=== PATIENT | male | born 1985 | race Caucasian/White ===

== ENCOUNTER 2019-09-13 10:22 | Outpatient (CLI) | payer MEDICARE, MEDICAID, SELFPAY ==
--- NOTE | ~2019-09-13 | XR_ITS ---
EXAMINATION: XR chest 2V DATE: 09/13/2019 10:40 INDICATION: Other specified symptoms and signs involving the circulatory system. TECHNIQUE: Frontal and lateral views of the chest were obtained. COMPARISON: Chest 2 views 08/02/2018 FINDINGS: Calcified bilateral lung nodules and calcified left hilar lymph nodes are consistent with o ld granulomatous disease. No pleural effusion or pneumothorax. The heart size is normal. IMPRESSION: 1. No acute cardiopulmonary disease. Reviewed, dictated and finalized at location A.
--- NOTE | ~2019-09-13 | CT_ITS ---
EXAMINATION: CT abdomen wo con DATE: 09/13/2019 11:37 INDICATION: Right flank pain TECHNIQUE: Computed tomography (CT) of the abdomen was performed without intravenous contrast. The do se-length product (DLP) was 190.15 mGy-cm. Automated exposure control and iterative reconstruction te nique were employed. COMPARISON: 08/02/2018 FINDINGS: The lung bases are clear. The heart size is normal. The liver, spleen, gallbladder, and adr enal glands are normal. There is complete fatty replacement of the pancreas, consistent with Schwachm an-Lela syndrome. There is a 2 mm nonobstructing stone of the right kidney lower pole. No stones a re identified in the left kidney or the visualized portions of the partially imaged ureters. There is no visualized hydronephrosis or hydroureter. There are no pathologically enlarged abdominal lymph no damon. There is no free intraperitoneal gas or evidence of bowel obstruction. IMPRESSION: 1. Nonobstructing right nephrolithiasis. No hydronephrosis or hydroureter of the partially imaged ure ters. Reviewed, dictated and finalized at location A. IMPRESSION: 1. Nonobstructing right nephrolithiasis. No hydronephrosis or hydroureter of th e partially imaged ureters.
== END 2019-09-13 10:23 | disposition home or self-care (01) ==
PROVIDERS: PCP Family Medicine; Visit Provider Family Medicine
DX: M54.9 Dorsalgia, unspecified (principal); R10.9 Unspecified abdominal pain; R09.89 Other specified symptoms and signs involving the circulatory and respiratory systems; N20.0 Calculus of kidney
CPT/HCPCS: 71046; 74150

== ENCOUNTER 2021-06-29 15:55 | Outpatient (CLI) | payer MEDICARE, MEDICAID, SELFPAY ==
[2021-06-29 16:32] LABS: Basophils Percent Auto 0.5 % (0.2-1.2); Eosinophils Absolute Auto 0.1 K/mm3 (0-0.3); Eosinophils Percent Auto 2.1 % (0-4.4); Hematocrit 44.9 % (42.0-52.0); Hemoglobin 15.1 g/dL (14.0-18.0); Immature Granulocyte Absolute 0.03 K/mm3 (0.00-0.031); Immature Granulocyte Percent A 0.7 % (0-0.5); Lymphocytes Absolute Auto 1.99 K/mm3 (0.9-3.2); Mean Corpuscular HGB Conc 33.6 g/dl (32-36); Mean Corpuscular Hemoglobin 32.1 pg (26-34); Mean Corpuscular Volume 95.3 fl (80-100); Mean Platelet Volume 9.3 fl (7.4-10.4); Monocytes Absolute Auto 0.7 K/mm3 (0.1-0.6); Monocytes Percent Auto 15.4 % (2.6-8.5); Neutrophils Absolute Auto 1.5 K/mm3 (1.3-6.7); Neutrophils Percent Auto 34.3 % (45.5-73.1); Platelet Count Result 132 k/mm3 (150-375); Red Blood Count 4.71 M/mm3 (4.6-6.20); Red Cell Distribution Width 12.6 % (11.5-14.5); White Blood Count 4.2 K/mm3 (4.5-10.0)
[2021-06-29 16:48] LABS: Alanine Aminotransferase 17 U/L (6-50); Albumin Level 4.9 g/dL (3.5-5.1); Alkaline Phosphatase 65 U/L (38-126); Anion Gap 11 mmol/L (8-16); Aspartate Amino Transferase 34 U/L (17-59); Bilirubin,Total 0.5 mg/dL (0.2-1.3); Blood Urea Nitrogen 18 mg/dL (9-20); Calcium 8.9 mg/dL (8.4-10.2); Carbon Dioxide 21 mmol/L (22-30); Chloride 106 mmol/L (98-107); Cholesterol 184 mg/dL (0-200); Estimated Glomerular Filt Rate > 60; Glucose 130 mg/dL (65-110); HDL Direct 66 mg/dL; Potassium 4.1 mmol/L (3.4-5.0); Sodium 138 mmol/L (137-145); Triglycerides 86 mg/dL (<150)
[2021-06-29 16:59] LABS: LDL Cholesterol Direct 92 mg/dL
[2021-06-29 17:51] LABS: Folic Acid 15.6 ng/mL (2.76->20)
[2021-06-29 17:59] LABS: Free T4 Free Thyroxine 0.77 ng/mL (0.78-2.19); Vitamin D 25 Hydroxy 51.2 ng/mL
[2021-06-29 18:33] LABS: Hemoglobin A1C 5.2 % (<5.7)
[2021-07-03 06:11] LABS: Insulin Level Total 213.4 uIU/mL (<=19.6)
== END 2021-06-29 15:56 | disposition home or self-care (01) ==
LOC: ANHLAB 16:00
PROVIDERS: PCP Physician Assistant
DX: F20.0 Paranoid schizophrenia (principal)
CPT/HCPCS: 36415; 80053; 80061; 82306; 82607; 82746; 83036; 83525; 84439; 84443; 85025

== ENCOUNTER 2022-07-07 22:14 | Emergency (ER) | payer MEDICARE, MEDICAID, SELFPAY ==
[2022-07-07 22:20] VITALS: BP 136/76; PULSE 65; RESP 15; TEMP 36.8; O2SAT 98
== END 2022-07-08 00:15 | disposition left against medical advice (07) ==
LOC: ANHED 07-08 00:06
DX: R10.30 Lower abdominal pain, unspecified (principal)
CPT/HCPCS: 99199

== ENCOUNTER 2022-07-20 16:17 | Outpatient (CLI) | payer MEDICARE, MEDICAID, SELFPAY ==
--- NOTE | ~2022-07-20 | CT_ITS ---
EXAMINATION: CT abdomen pelvis wo con DATE: 07/20/2022 16:37 INDICATION: R10.9 - Unspecified abdominal pain TECHNIQUE: Computed tomography (CT) of the abdomen and pelvis was performed without intravenous contr ast. Automated exposure control and iterative reconstruction technique were employed. The dose-length product was 389.92 mGy-cm. COMPARISON: 09/13/2019. FINDINGS: Lower thorax: Unremarkable Liver: Normal. Biliary/Gallbladder: Partially collapsed. No bile duct dilation. Pancreas: Complete fatty replacement. Spleen: Normal. Adrenals:No mass. Kidneys: Nonobstructing 3 mm right lower pole calcification No mass, obstructing stone, or hydronephr osis. GI tract: No small or large bowel dilation. Appendix not visualized, possibly surgically absent. Austell ned submucosal fat as can be seen with chronic IBD, obesity, chemotherapy treatment, and celiac disea se. Mesentery/Peritoneum: No ascites, mass, or free air. Retroperitoneum: No mass. Pelvis: Pelvic organs are within normal limits. Soft Tissues: Soft tissues and body wall unremarkable. Bones: No acute osseous finding. Uncomplicated appearing bilateral femoral hardware. IMPRESSION: No acute abdominopelvic process detected. Reviewed, dictated and finalized at location K.
== END 2022-07-20 16:18 | disposition home or self-care (01) ==
LOC: ANHIMG 16:19
PROVIDERS: PCP Family Medicine; Visit Provider Physician Assistant Medical
DX: R10.9 Unspecified abdominal pain (principal); R19.7 Diarrhea, unspecified
CPT/HCPCS: 74176

== ENCOUNTER 2023-10-20 14:46 | Outpatient (CLI) | payer MEDICARE, MEDICAID, SELFPAY ==
[2023-10-20 15:44] LABS: Hemoglobin A1C 5.2 % (<5.7)
== END 2023-10-20 14:47 | disposition home or self-care (01) ==
LOC: ANHLAB 14:50
PROVIDERS: PCP Family Medicine; Visit Provider Student in an Organized Health Care Education/Training Program
DX: R73.09 Other abnormal glucose (principal)
CPT/HCPCS: 36415; 83036

== ENCOUNTER 2024-03-11 23:24 | Emergency (ER) | payer MEDICARE, MEDICAID, SELFPAY ==
--- NOTE | ~2024-03-11 | XR_ITS ---
Portable chest x-ray Comparison: 09/13/2019 Clinical History: Cough Findings: Lungs are clear, without focal consolidation or pleural effusion. Cardiomediastinal silho uette is stable. Bones and soft tissues are unremarkable. Impression: Normal chest. Reviewed, dictated and finalized at [facility]. 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
[2024-03-11 23:27] VITALS: BP 108/73; PULSE 100; RESP 20; TEMP 37.4; O2SAT 99
[2024-03-12 00:15] LABS: Influenza A QL RT-PCR Positive (Negative); Influenza B QL RT-PCR Negative (Negative); RSV RNA, RT-PCR Negative (Negative); SARS-CoV-2 RNA PCR Negative (Negative)
[2024-03-12 01:10] VITALS: O2SAT 98
--- NOTE | 2024-03-12 01:30 | ED_ITS ---
HPI - URI/Sore Throat General Chief Complaint: Upper Respiratory Infection Stated Complaint: fever, cough, chest pain, body aches, sob, N/V Time Seen by Provider: 03/12/24 00:58 Source: patient Mode of arrival: ambulatory Limitations: no limitations History of Present Illness HPI Narrative: This is a 38-year-old male with PMH of schizophrenia who presents to the ED for chief complaint of flu-like symptoms beginning last night. Patient reports subjective fevers, cough, wheezing and shortness of breath. States that he has asthma and does smoke cigarettes. He does have a rescue inhaler at home, however he notes that it in 2017. Reports multiple family member sick at home with similar symptoms. Related Data Home Medications ?Medication ?Instructions ?Recorded ?Confirmed ?Last Taken ?Type albuterol sulfate 90 mcg/actuation 1 inh inhalation Q4H 02/06/20 01/23/24 Unknown History aerosol inhaler (ProAir HFA) aripiprazole 5 mg tablet 5 mg PO DAILY 02/06/20 01/23/24 Unknown History Allergies Allergy/AdvReac Type Severity Reaction Status Date / Time Cephalosporins Allergy Unknown Unknown Verified 03/11/24 23:25 ALBUPENT SYRUP Allergy Mild Unknown Uncoded 03/11/24 23:25 Review of Systems Review of Systems: All systems as dictated in [facility] Past Medical History Medical History (Updated 03/12/24 @ 01:55 by Erik Osman PA-C) Mood disorder Surgical History Surgical History History of hip surgery Social History Social History Smoking packs per day: 0.5 Smoking cigarettes per day: 10.0 Years smoked: 10 Smoking pack-years: 5.00 Smoking status: Current every day smoker (1/2 pack per day) Tobacco type: cigarettes Second hand tobacco smoke exposure: No Alcohol intake: never Alcohol use details: very rarely, maybe one drink every 3-4 months Substance use: current Substance use type: marijuana Other substance usage details: q PRN Exam Narrative: GENERAL: Well-appearing, well-nourished, and in no acute distress. HEAD: Normocephalic, atraumatic. EYES: PERRLA and EOMI. ENT: Nares clear, no rhinorrhea or epistaxis. Mucous membranes moist. Oropharynx without tonsillar hypertrophy exudate or other lesions. NECK: Supple. No adenopathy or masses. CHEST: No respiratory distress. Bilateral expiratory wheeze. 98% room air. HEART: Regular rate and rhythm. No murmur heard. Normal peripheral pulses. ABDOMEN: Soft, nontender, nondistended, normal active bowel sounds. MSK: Normal range of motion. No edema. SKIN: Warm, dry, no rash. NEURO: Alert and oriented x4. No focal deficits. PSYCH: Normal mood and affect. Course Vital Signs Vital signs: Vital Signs Temperature 99.3 F 03/11/24 23:27 Pulse Rate 100 03/11/24 23: Respiratory Rate 20 03/11/24 23:27 Blood Pressure 108/73 03/11/24 23:27 Pulse Oximetry 99 03/11/24 23:27 Oxygen Delivery Room Air 03/11/24 23:27 Temperature 99.3 F 03/11/24 23:27 Pulse Rate 100 03/11/24 23:27 Respiratory Rate 20 03/11/24 23:27 Blood Pressure 108/73 03/11/24 23:27 Pulse Oximetry 98 03/12/24 01:10 Oxygen Delivery Room Air 03/12/24 01:10 MDM - URI/Sore Throat MDM Narrative Medical decision making narrative: This is a 38-year-old male who presents to the ED for chief complaint of cough, congestion, body aches. Vitals are normal. Exam does show diffuse bilateral expiratory wheezes. No overt respiratory distress. He is saturating well on room air. Viral swabs are positive for influenza A. Chest x-ray preliminary read does not show any acute findings. Patient was given DuoNeb, Tylenol, ibuprofen and 1st dose of Tamiflu here. He will be given prescription for Tamiflu as he is in the window and would like to try this for home treatment. Patient will be discharged in stable condition. Supportive measures discussed and return precautions given. Patient is understanding and agreeable with plan for discharge with PCP follow-up. Lab Data Labs: Lab Results 03/11/24 Range/Units 23:35 Influenza A (RT-PCR) Positive A (Negative) Influenza B (RT-PCR) Negative (Negative) RSV (RT-PCR) Negative (Negative) SARS-CoV-2 RNA (RT-PCR) Negative (Negative) Discharge Plan Discharge Clinical Impression: Influenza Patient Disposition: Home, Self-Care Condition: Stable Instructions: Antibiotic Form, Influenza (ED) Additional Instructions: Exam and imaging today are reassuring. Please take albuterol as prescribed. Tamiflu prescribed for flu symptoms. Continue with Tylenol and ibuprofen regularly for pain and fever control. If you have any new or worsening symptoms please return to the ER for further evaluation. Patient Language: Bengali Prescriptions: New albuterol sulfate [Ventolin HFA] 90 mcg/actuation HFA aerosol inhaler 2 inh inhalation Q4H PRN (Reason: shortness of breath or wheezing) Qty: 6.7 0RF oseltamivir [Tamiflu] 75 mg capsule 75 mg PO Q12H 5 Days Qty: 9 0RF No Action albuterol sulfate [ProAir HFA] 90 mcg/actuation HFA aerosol inhaler 1 inh inhalation Q4H aripiprazole 5 mg tablet 5 mg PO DAILY trazodone 100 mg tablet 100 mg PO QHS PRN (Reason: insomnia) Qty: 1 0RF clotrimazole [Antifungal (clotrimazole)] 1 % cream 1 applic topical Q12H Qty: 90 0RF hydroxyzine HCl 50 mg tablet See Rx Instructions PO .COMPLEX PRN (Reason: sleep) Qty: 30 2RF Rx Instructions: 25-50 mg PO QHS PRN; Pulmicort Flexhaler 90 mcg/actuation aerosol powdr breath activated 1 inh inhalation Q12H Qty: 1 6RF Follow-up/Referrals: Itzel Santos MD [Primary Care Provider] - Time of Disposition: 01:56
[2024-03-12] MEDS: OSELTAMIVIR PHOSPHATE 75 MG CAPSULE PO (01:45)
[2024-03-12] MEDS: ACETAMINOPHEN 500 MG TABLET 1000 MG PO (01:45)
[2024-03-12] MEDS: IBUPROFEN 400 MG TABLET 800 MG PO (01:45)
[2024-03-12] MEDS: IPRATROPIUM 0.5 MG/ALBUTEROL SULFATE 2.5 MG AMPUL.NEB 3 ML INHALATION (01:47)
[2024-03-12 01:48] VITALS: PULSE 105; RESP 20
[2024-03-12 01:52] VITALS: BP 113/77; PULSE 98; RESP 18; O2SAT 100
[2024-03-12 01:54] VITALS: PULSE 107; RESP 20
--- OUTSIDE RECORDS SUMMARY | 2024-03-14 15:06 | XMS_ITS | Clinical Summary ---
Author Organization [facility] al Address [address] [place] [address] Care Team Providers Care Door Liner Helper Name Role Phone Terese Jacob MD Primary Care Provider [phone] Allergies Active Allergy Reactions Criticality Noted Date Comments Prochlorperazine Anaphylaxis High Cefuroxime Sodium Rash Medium Medications VENTOLIN HFA 90 mcg/actuation inhaler INL 2 PFS PO Q 4 TO 6 H PRN 0 06/13/2018 Active OLANZapine (ZyPREXA) 15 mg tablet TK 1 T PO QD HS 0 04/18/2018 Active hydrOXYzine (ATARAX) 50 mg tablet TK 1 T PO TID 1 06/08/2018 Active Active Problems Problem Noted Date Diagnosed Date Abnormal EKG 07/23/2018 Chest pain 07/23/2018 History of tobacco abuse 07/23/2018 Weakness 07/23/2018 Hypersomnolent 07/23/2018 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 As per prior assessments and per longitudinal follow up as well as his recent year of lack of symptomology off psychotropic medications, his psychotic symptoms seem to have been precipitated by substances: namely marijuana and K2 use. His psychosis is poorly characterized at this time given the limitations of both historians and some inconsistent reporting; however, his psychotic episodes are self limited, episodic and largely confounded by alcohol, K2 use and likely change in his MJ use/supply. While patient denies periods of DNFS, elated/irritable mood, hypertalkativity, bizarre behavior and grandiosity, some similar symptoms have been vaguely previously reported. This would need to be further readdressed as the patient's episodic psychosis-despite his confounding substance use, and his strong family history of bipolar/psychosis, would warrant close monitoring of any hypomania/dana. Patient has had depressive episodes however they are poorly characterized in duration/severity and are also confounded by alcohol or substance use. We will continue the diagnosis of unspecified depressive disorder vs substance induced mood disorder vs substance induced psychotic disorder vs unspecified bipolar affective disorder. He will need close follow up for monitoring of any psychotic or hypomanic/dana relapse. 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 Longitudinal course is complicated by intellectual disability (failed milestones, required significant special ed, displays poor understanding/knowledge/learning) and previously mentioned concern for unspecified cannabis use disorder as well as unspecified alcohol use disorder. Further evaluation will allow for better characterization of his use disorder; the patient is however a limited historian and has been inconsistent in his reporting of his use, such as previously acknowledging his K2 use. Of note his alcohol use disorder is reportedly in sustained remission. He is still actively using MJ with ambivalence regarding cutting down. Due to uncertainty of etiology of psychosis/manic symptoms the patient did go through trials of Seroquel (too sedating), Zyprexa (weight gain), and Martin (weight gain) but all were discontinued due to patient having poor follow-up for safety monitoring, patient over using the medication (not overdosing but taking extra ), and gathered evidence that symptoms were resolved and likely substance induced. Moreover patient has had continuous concern for decreased libido on certain medications as well as chronic and recurrent somatic concerns such as chest pain in the c/o anxiety. His anxiety is however not generalized nor chronic but rather more consistent with social anxiety with years of avoidance, somatic complaints when around large groups of people and anxious anticipation. Importantly his anxiety is worsened by sensory triggers: namely loud noises, hyper-excitability and anger in the surrounding. Finally the patient has a long history of misusing medication (given limited reliability related to his disability, and not concerning for any manipulative behavior or self harming gestures), by either ? overmedicating? , taking medications no longer prescribed which he still had access to and being given family members? treatments such as his mother? s benzodiazepine. He presents today with bottles of medications which had been prescribed in 2016 and 2017: Seroquel 50 mg po qHS, lorazepam 1 mg and Wellbutrin. He states that he has started them again 2-3 days ago with inconsistent compliance and despite having been off his meds for >1 year. Of note some of those meds were not on his latest medication list. We discussed the need to dispose of all discontinued medications and to only medicate with treatments prescribed to him specifically. He and his girlfriend were understanding. As we have no secure facilities to discard those medications and given some of their abuse potential, I recommended they return them at a police station which they reported planning to do. We also discussed the need to come with his medications upon each appointment to better address this issue. The patient has not had evidence of psychosis, disorganization or depression over the past year. Will continue to monitor for better longitudinal f/u. Moreover we would also need to f/u on his baseline intellectual abilities. PLAN: #Medications; -Start Buspar 10 mg po BID; will plan on increasing to 15 mg po BID -R/B/SE/A were discussed and patient consented to current treatment plan - patient and his SO were instructed to reach out with updates if needed and if any recurrence of affective/psychotic symptoms #Psychotherapy; -per below #Medical -PCP recently retired so looking for a new PCP; will provide the medicine clinic? s contact -Patient followed by hematology at [facility] for his Shwachman-Lela Syndrome. #Substance use -Provided extensive psychoeducation regarding vulnerability to substance induced psychosis. Patient is currently using MJ despite reporting cutting down on the amount; he denies other illicit substance use. Denies ETOH use. #Risk/Follow up -Patient is at moderate increased risk due to substance use, intellectual disability, history of unspecified psychosis, and poor health/medical literacy. Protective factors include access to care, family support and no active SI/HI/Psychosis. Patient is stable for continued OTP care. -RTC in 1 month. Patient instructed to call 911/EMS or go to the nearest ER in event of emergency. I provided him with my card for non emergency contact. Surgical History Surgery Date Site/Laterality Comments HIP SURGERY KNEE SURGERY Medical History Medical History Date Comments Tobacco abuse counseling Encount er for smoking cessation counseling - 07/08/10 (Added by TW Conv) Encounter for immunization Need for prophylactic vaccination and inoculation against influenza - Vaccines Prophylactic Need Against Influenza (Added by TW Conv) Acid indigestion Anxiety and depression Asthma Family History Medical History Relation Name Comments Schizophrenia Father's Brother Bipolar disorder Maternal Grandmother Hypertension Mother Family history of hypertension - (Added by TW Conv) Relation Name Status Comments Father's Brother Maternal Grandmother Mother Social History Tobacco Use Types Packs/Day Years Used Date Smoking Tobacco: Never Smokeless Tobacco: Never Sex and Gender Information Value Date Recorded Sex Assigned at Not on file 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 Gender Identity Not on file Sexual Orientation Not on file Obstetrics History Last Filed Vital Signs Vital Sign Reading Time Taken Comments Blood Pressure 110/78 07/23/2018 2:34 PM CDT Pulse 78 07/23/2018 2:34 PM CDT Temperature 36.7 ??C (98 ??F) 10/03/2017 2:15 PM CDT Respiratory Rate - - Oxygen Saturation 98% 07/23/2018 2:34 PM CDT Inhaled Oxygen Concentration - - Weight 75.3 kg (166 lb) 07/23/2018 2:34 PM CDT Height 165.1 cm (5' 5 ) 07/23/2018 2:34 PM CDT Body Mass Index 27.62 07/23/2018 2:34 PM CDT Plan of Treatment Not on file Insurance MEDICARE IDPA MEDICARE IDPA Care Teams Door Liner Helper Relationship Specialty Start Date End Date Terese Jacob MD PCP - General Family Practice 07/23/18
--- OUTSIDE RECORDS SUMMARY | 2024-03-14 15:06 | XMS_ITS | Referral Summary ---
Author Organization [facility] al Address [address] [place] [address] Care Team Providers Care It Solutions Architect Name Role Phone Terese Jacob MD Primary Care Provider [phone] Allergies Active Allergy Reactions Criticality Noted Date [...] Seroquel (too sedating), Zyprexa (weight gain), and [place] (weight gain) but all were discontinued due [...] s contact -Patient followed by hematology at [facility] for his Shwachman-Lela Syndrome. #Substance use -Provided [...] with my card for non emergency contact. 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
== END 2024-03-12 02:49 | disposition home or self-care (01) ==
LOC: ANHED 03-12 02:15
PROVIDERS: Emergency Provider Physician Assistant; PCP Family Medicine
DX: J11.1 Influenza due to unidentified influenza virus with other respiratory manifestations (principal); Z20.822 Contact with and (suspected) exposure to COVID-19; F20.9 Schizophrenia, unspecified; F17.210 Nicotine dependence, cigarettes, uncomplicated; Z79.899 Other long term (current) drug therapy
CPT/HCPCS: 71045; 87637; 94640; 99283; A9270

== ENCOUNTER 2024-04-11 16:25 | Outpatient (CLI) | payer MEDICARE, MEDICAID, SELFPAY ==
--- OUTSIDE RECORDS SUMMARY | 2024-04-11 16:28 | XMS_ITS ---
Author Organization [facility] [employer] Address [address] [facility] [address] [place] [address] Care Team Providers Care Relief Salesperson Name Role Phone Linnea Condon Unavailable [phone] Rukhsana Ayse Unavailable [phone] Allergies Allergen (clinical drug ingredient) Drug/Non Drug Allergy documented on EMR Reaction Allergy Type Onset Date Status Zinacef Unknown Drug Allergy 04/04/2023 Active REASON FOR VISIT follow up medication management Medications Medication SIG (Take, Route, Frequency, Duration) Notes Start Date End Date Status ARIPiprazole 20 MG 1 tablet Oral Once a day for 90 days Active Eletriptan Hydrobromide 40 mg Oral *Reorder from [facility] for eRx and Interaction Alerts* 04/04/2023 Active hydrOXYzine HCl 50 MG 1 tablet Oral Once a day for 30 days As needed for severe anxiety Active Tamsulosin HCl 0.4 MG Oral 04/04/2023 Active traZODone HCl 100 MG take 1-2 tablets at bedtime Oral for 30 days As needed for insomnia Active Escitalopram Oxalate 10 MG 1 tablet Oral Once a day for 90 days Active Ventolin HFA 108 (90 Base) MCG/ACT Inhalation 04/04/2023 Active Social History Tobacco Use: Social History Observation Description Date Details (start date - stop date) Current Smoker 11/27/2007 - NA Sex Assigned At : Social History Observation Description Sex Assigned At Male Tobacco Control (Standard) Question Answer Notes Tobacco use: Current smoker When did you start smoking? 11/27/2007 How often do you smoke cigarettes? Every day How many cigarettes a day do you smoke? 6-10 How soon after you wake up d o you smoke your first cigarette? 6-30 minutes Are you interested in quitting? Thinking about q uitting Section Notes: Social History Substance Use Do you or have you ever smoked tobacco?: Current smoker At what age did you start smoking tobacco?: 16 How much tobacco do you smoke?: Daily Do you or have you ever used any other forms of tobacco or nicotine?: No Do you or have you ever used e-cigarettes or vape?: Never used electronic cigarettes Do you or have you ever used smokeless tobacco?: Never used smokeless tobacco What was the date of your most recent tobacco screening?: 11/29/23 Has tobacco cessation counseling been provided?: Yes What is your level of alcohol consumption?: None Do you use any illicit or recreational drugs?: No Which illicit or recreational drugs have you used?: Marijuana Have you used IV drugs?: No What is your level of caffeine consumption?: Occasional Education and Occupation What is the highest grade or level of school you have completed or the highest degree you have received?: High school graduate Are you currently employed?: No (Notes: disability) Who is your employer?: [employer] Marriage and Sexuality What is your relationship status?: Single Are you sexually active?: Yes Do you use protection during sex?: No How many children do you have?: 3 Home and Environment Do you have any siblings?: 3 Are there any smokers in your house?: No Are there any guns present in your home?: No Advance Directive Do you have an advance directive?: No Do you have a medical power of county attorney?: Yes Gender Identity and LGBTQ Identity First name used: NANCY Sexual orientation: Straight or heterosexual Problems Problem Type SNOMED Code ICD Code Onset Dates Problem Status W/U Status Risk Notes Problem Shwachman syndrome (12989767) 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 Vital Signs Blood pressure systolic 134 mm Hg 11/29/19 24 Blood pressure diastolic 83 mm Hg 024 Heart Rate 99 /min 11/29/2023 Height 65.00 in 11/29/2023 Weight 153 lbs 11/29/2023 BMI 25.46 kg/m2 11/29/2023 Height-cm 165.10 cm 11/29/2023 Weight-kg 69.4 kg 11/29/2023 Encounters Encounter Location Date Provider Diagnosis [facility] [address] [facility] [address] [place] [address] 11/29/2023 Ayse Milian Schizoaffective disorder, depressive type F25.1 ; Generalized anxiety disorder F41.1 ; Chronic insomnia F51.04 and Shwachman syndrome D61.02 Assessments Encounter Date Diagnosis (ICD Code) Assessment Notes Treatment Notes Treatment Clinical Notes Section Notes 11/29/2023 Schizoaffective disorder, depressive type (ICD-10 - F25.1) cont escitalopram 10mg daily cont abilify 20mg daily sent 6 months refill last visit doing well cont current meds, education medication and treatment course f/u 4 month, earlier if concerns notes: uses cannabis for pain, have encouraged minimize paranoid schizophrenia w/ hx of depression 11/29/2023 Generalized anxiety disorder (ICD-10 - F41.1) stable cont hydroxyzine 50mg qd prn-takes 1-2x a week 11/29/2023 Chronic insomnia (ICD-10 - F51.04) cont trazodone 100mg tab, take 1-2 tabs qhs prn insomnia 11/29/2023 Shwachman syndrome (ICD-10 - D61.02) Plan Of Treatment Medication Medication Name Sig Start Date Stop Date Notes ARIPiprazole 20 MG 1 tablet Oral Once a day for 90 days hydrOXYzine HCl 50 MG 1 tablet Oral Once a day for 30 days traZODone HCl 100 MG take 1-2 tablets at bedtime Oral for 30 days Escitalopram Oxalate 10 MG 1 tablet Oral Once a day for 90 days Treatment Notes Assessment Notes Schizoaffective disorder, depressive typ e cont escitalopram 10mg daily cont abilify 20mg daily sent 6 months refill last visit Generalized anxiety disorder stable cont hydroxyzine 50mg qd prn-takes 1-2x a week Chronic insomnia cont trazodone 100mg tab, take 1-2 tabs qhs prn insomnia Next Appt Details Follow Up: 4 Months, Reason: Progress Notes * SCOTT MCKEONDOB: [birth year] (38 yo M)Acc No.[id number]:11/29/2023 Patient: SCOTT GENTILE Provider: TEE PARSON :1985 A ge:38 Y S ex:Male Date:11/29/2023 Address:[address] [place], [place] [id number] Subjective: * Chief Complaints: * 1 . Follow up medication management. * HPI: D epression Screening: BRUNO-7 (2018 Edition) F eeling nervous, anxious, or on edge?Not at all, N ot being able to stop or control worrying N ot at all, W orrying too much about different things N ot at all, T rouble relaxing N ot at all, B eing so restless that it is hard to sit still N ot at all, B ecoming easily annoyed or irritable N ot at all, F eeling afraid as if something awful might happen N ot at all, T otal BRUNO-7 Score 0 , I nterpretation of Total ( 0 to 4) No Anxiety. D epression screening: PHQ-9 L ittle interest or pleasure in doing things N ot at all, F eeling down, depressed, or hopeless N ot at all, T rouble falling or staying asleep, or sleeping too much N ot at all, F eeling tired or having little energy M ore than half the days, P oor appetite or overeating N ot at all, F eeling bad about yourself or that you are a failure, or have let yourself or your family down N ot at all, T rouble concentrating on things, such as reading the newspaper or watching television N ot at all, M oving or speaking so slowly that other people could have noticed; or the opposite, being so fidgety or restless that you have been moving around a lot more than usual N ot at all, T houghts that you would be better off or of hurting yourself in some way N ot at all, T otal Score 2, I nterpretation M inimal Depression. I ntervention D epression Screening Findings N egative, F ollow-Up for Depression E motional support education, Management of mental health treatment, S uicide Risk Assessment Performed 1 , A dditional Evaluation for Depression P sychiatric interview and evaluation, N laurie of the standardized tool used for adult depression screening: P atient Health Questionnaire (PHQ-9). H istory of Presenting Problem: 38 y/o male, , lives with parents, here to follow up for schizophrenia, depression, and anxiety. Context Shwachman syndrome. no med changes last visit, denies side effects; t aking medicine as prescribed, takes trazodone nightly, hydroxyzine on occasion thiings are still good. denies depression, denies SI. denies dana, psychosis. Anxiety comes and goes not every day, is manageable. No panic attacks. Sleeping good with medication. No medication concerns. i'm doing ok ETOH: none cannabis: smoke for pain, every once in a while other drugs: denies. G eneral Follow Up: ongoing notes: substance hx: smoker cannabis daily for pain, usually not too much, not all day not a big drinker I don't do hard drugs reported had labs summer 2022 with PCP; prior labs 06/29/21 results in chart Live with parents, like roommates, pay them rent, buy my own stuff, help out around the house. * ROS: P sychiatric: Comments S [facility] for details. * Medical History: P roblems: Generalized anxiety disorder, Paranoid schizophrenia, Schizoaffective disorder, Shwachman syndrome, Smoker, ,. * Surgical History: R econstructive surgery , Removal of gallbladder (22268) 11/21/2012. * Hospitalization/Major Diagno stic Procedure: D enies Past Hospitalization. * Family History: P aternal Uncle: Schizophrenia . P aternal Grandmother: Depressive disorder . M aternal Grandmother: Bipolar disorder , Depressive disorder , Schizophrenia . S ister: Bipolar disorder , Depressive disorder . * Social History: T obacco Use: T obacco Control (Standard) T obacco use: C urrent smoker, W hen did you start smoking? 1 , H ow often do you smoke cigarettes? E very day, H ow many cigarettes a day do you smoke? 6 -10, H ow soon after you wake up do you smoke your first cigarette? 6 -30 minutes, A re you interested in quitting? T hinking about quitting. S ocial History Substance Use Do you or have you ever smoked tobacco?: Current smoker At what age did you start smoking tobacco?: 16 How much tobacco do you smoke?: Daily Do you or have you ever used any other forms of tobacco or nicotine?: No Do you or have you ever used e-cigarettes or vape?: Never used electronic cigarettes Do you or have you ever used smokeless tobacco?: Never used smokeless tobacco What was the date of your most recent tobacco screening?: 11/29/23 Has tobacco cessation counseling been provided?: Yes What is your level of alcohol consumption?: None Do you use any illicit or recreational drugs?: No Which illicit or recreational drugs have you used?: Marijuana Have you used IV drugs?: No What is your level of caffeine consumption?: Occasional Education and Occupation What is the highest grade or level of school you have completed or the highest degree you have received?: High school graduate Are you currently employed?: No (Notes: disability) Who is your employer?: [employer] Marriage and Sexuality What is your relationship status?: Single Are you sexually active?: Yes Do you use protection during sex?: No How many children do you have?: 3 Home and Environment Do you have any siblings?: 3 Are there any smokers in your house?: No Are there any guns present in your home?: No Advance Directive Do you have an advance directive?: No Do you have a medical power of county attorney?: Yes Gender Identity and LGBTQ Identity First name used: NANCY Sexual orientation: Straight or heterosexual. * Medications: T aking Ventolin HFA 108 (90 Base) MCG/ACT Aerosol Solution Inhalation , Taking Eletriptan Hydrobromide 40 mg Tablet Oral , Notes to Pharmacist: *Reorder from [facility] for eRx and Interaction Alerts*, Taking Tamsulosin HCl 0.4 MG Capsule Oral , Taking Escitalopram Oxalate 10 MG Tablet 1 tablet Oral Once a day , Taking ARIPiprazole 20 MG Tablet 1 tablet Oral Once a day , Taking hydrOXYzine HCl 50 MG Tablet 1 tablet Oral Once a day As needed for severe anxiety, Taking traZODone HCl 100 MG Tablet take 1-2 tablets at bedtime Oral As needed for insomnia, Medication List reviewed and reconciled with the patient * Allergies: Z inacef: Allergy - Onset Date 04/04/2023. Objective: * Vitals: B P:134/83mm Hg, HR:99/min, Wt:153lbs, Wt-k.4 kg, Ht: 65.00 in, Ht-cm: 165.10 cm, BMI:25.46Index, Body Surface Area: 1.78. * Examination: P sychiatry: Appearance: A ppearance: alert,well-groomed, clean, appears well rested. No acute physical distress. B ehavior: eye contactgood, cooperative, pleasant. Abnormal body movements: n one. Affect / mood: a ppropriate, full range. Attention: n ormal in conversation. Attitude: c ooperative. Suicidal ideation: n one. Memory status: n o impairment noted. Degree of awareness of surroundings: w ithin normal limits.? Delusions: n o. Hallucinations: n o. Insight: g ood. Intellectual functioning: n o impairment noted. Judgement: f air. Orientation: a wake, alert and oriented x 3. Perceptual disorders: n o perceptual disorder noted. Psychomotor activity: w ithin normal range. Speech / language: a ppropriate pitch/modulation, clear and coherent, normal rate, volume, and articulation (RVR), proper grammar used. Thought content: a ppropriate. Thought process: i ntact. Assessment: * Assessment: 1. S chizoaffective disorder, depressive type - F25.1 2 . G eneralized anxiety disorder - F41.1 3 . C hronic insomnia - F51.04 4 . S hwachman syndrome - D61.02 Plan: * Treatment: 2. G eneralized anxiety disorder Refill hydrOXYzine HCl Tablet, 50 MG, 1 tablet, Oral, Once a day As needed for severe anxiety, 30 days, 30 Tablet, Refills 1. Notes: stable cont hydroxyzine 50mg qd prn-takes 1-2x a week 3. C hronic insomnia Refill traZODone HCl Tablet, 100 MG, take 1-2 tablets at bedtime, Oral As needed for insomnia, 30 days, 60, Refills 3. Notes: cont trazodone 100mg tab, take 1-2 tabs qhs prn insomnia * Procedure Codes: 9 6127 BEHAV ASSMT W/SCORE & DOCD/STAND INSTRUMENT, G9902 Pt scrn tbco and id as user, G8510 NEG SCR D PT NOT ELIG F/U/PLN DOC * Preventive Medicine: Counseling: C ommunication to patient: C ounseled the Patient on tobacco use; cessation provided _ , C ounseled the Patient on smoking cessation; education provided 1 , C ounseled the Patient on smoking effects; education provided 1 . S moking Cessation counseling done Discuss the importance of quitting smoking,. * Follow Up: 4 Months * Billing Information: * Visit Code: 58132 OFFICE OUTPATIENT VISIT 25 MINUTES DETAILED HISTORY AND EXAM/MODERATE MEDICAL DECISION MAKING. * Procedure Codes: 67767 BEHAV ASSMT W/SCORE & DOCD/STAND INSTRUMENT. G9902 Pt scrn tbco and id as user. G8510 NEG SCR D PT NOT ELIG F/U/PLN DOC. 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 Context Shwachman syndrome. no med changes last visit, denies side effects; taking medicine as prescribed, takes trazodone nightly, hydroxyzine on occasion thiings are still good. denies depression, denies SI. denies dana, psychosis. Anxiety comes and goes not every day, is manageable. No panic attacks. Sleeping good with medication. No medication concerns. i'm doing ok ETOH: none cannabis: smoke for pain, every once in a while other drugs: denies Depression screening PHQ-9 Little inte rest or pleasure in doing things: Not at all Feeling down, depressed, or hopeless: No t at all Trouble falling or staying asleep, or sl eeping too much: Not at all Feeling tired or having little energy: M ore than half the days Poor appetite or overeating: Not at all Feeling bad about yourself o r that you are a failure, or have let yourself or your family down: Not at all Trouble concentrating on thi ngs, such as reading the newspaper or watching television: Not at all Moving or speaking so slowly that other people could have noticed; or the opposite, being so fidgety or restless that you have been moving around a lot more than usual: Not at all Thoughts that you would be b liza off or of hurting yourself in some way: Not at all Total Score: 2 Interpretation: Minimal Depression Intervention Depression Screening Findings: N egative Follow-Up for Depression: Em otional support education, Management of mental health treatment Suicide Risk Assessment Performed: 11/28 Additional Evaluation for De pression: Psychiatric interview and evaluation Name of the standardized too l used for adult depression screening:: Patient Health Questionnaire (PHQ-9) Depression Screening BRUNO-7 (2018 Edition) Feelin g nervous, anxious, or on edge: Not at all Not being able to stop or control worryi ng: Not at all Worrying too much about different things : Not at all Trouble relaxing: Not at all Being so restless that it is hard to sit still: Not at all Becoming easily annoyed or irritable: No t at all Feeling afraid as if something awful ato ht happen: Not at all Total BRUNO-7 Score: 0 Interpretation of Total: (0 to 4) No Anx iety Examination Category Sub-Category Detail Notes Category Not es Psychiatry Appearance: Appearance: alert, well-groomed, clean, appears well rested. No acute physical distress. Behavior: eye contact good, cooperative, pleasant Attitude: cooperative Psychomotor activity: within normal rang e Abnormal body movements: none Attention: normal in conversati on Degree of awareness of surroundings: wit hin normal limits Orientation: awake, alert and thompson ented x 3 Affect / mood: appropriate, full ra nge Speech / language: appropriate pitch/mo dulation, clear and coherent, normal rate, volume, and articulation (RVR), proper grammar used Insight: good Judgement: fair Thought process: intact Thought content: appropriate Perceptual disorders: no perceptual diso rder noted Suicidal ideation: none Intellectual functioning: no impairment noted Memory status: no impairment noted Delusions: no Hallucinations: no
--- OUTSIDE RECORDS SUMMARY | 2024-04-11 16:28 | XMS_ITS ---
Author Organization [facility] [email or web address] Address [address] [facility] [address] [place] [address] Care Team Providers Care Payment Analyst Name Role Phone Linnea Condon Unavailable [phone] REASON FOR VISIT Refill Medications Medication SIG (Take, Route, Frequency, Duration) Notes Start Date End Date Status Escitalopram Oxalate 10 MG 1 tablet Oral Once a day for 30 days Active ARIPiprazole 20 MG 1 tablet Oral Once a day for 30 days Active Social History Sex Assigned At : Social History Observation Description Sex Assigned At Male Encounters Encounter Location Date Provider Diagnosis [facility] [address] [facility] [address] [address] 03/14/2024 Linnea Condon Schizoaffective disorder, depressive type F25.1 Assessments Encounter Date Diagnosis (ICD Code) Assessment Notes Treatment Notes Treatment Clinical Notes Section Notes 03/14/2024 Schizoaffective disorder, depressive type (ICD-10 - F25.1) Plan Of Treatment Medication Medication Name Sig Start Date Stop Date Notes Escitalopram Oxalate 10 MG 1 tablet Oral Once a day for 30 days ARIPiprazole 20 MG 1 tablet Oral Once a day for 30 days Progress Notes * SCOTT MCKEONDOB: [birth year] (38 yo M)Acc No.[id number]:03/14/2024 Patient: SCOTT GENTILE :1985 A ge:38 Y S ex:Male Address:[address] [place] [address], [address] * Refills Refill ARIPiprazole Tablet, 20 MG, Oral, 30 Tablet, 1 tablet, Once a day, 30 days, Refills=0 Refill Escitalopram Oxalate Tablet, 10 MG, Oral, 30 Tablet, 1 tablet, Once a day, 30 days, Refills=0 * true * Date: Generated for Carli biggs/Amy/Serg on: 0 04/11/2024 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
--- OUTSIDE RECORDS SUMMARY | 2024-04-11 16:28 | XMS_ITS ---
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 Derrick Operator Name Role Phone Linnea Condon Unavailable [phone] REASON FOR VISIT Refill Medications Medication SIG (Take, Route, Fr equency, Duration) Notes Start Date End Date Status hydrOXYzine HCl 50 MG 1 tablet as needed Orally Once a day for 30 days 02/19/2024 Active Social History Sex Assigned At : Social History Observation Description Sex Assigned At Male Encounters Encounter Location Date Provider Diagnosis [facility] [address] [address] 02/19/2024 Linnea Condon Generalized anxiety disorder F41.1 Assessments Encounter Date Diagnosis (ICD Code) Assessment Notes Treatment Notes Treatment Clinical Notes Section Notes 02/19/2024 Generalized anxiety disorder (ICD-10 - F41.1) Plan Of Treatment Medication Medication Name Sig Start Date Stop Date Notes hydrOXYzine HCl 50 MG 1 tablet as needed Orally Once a day for 30 days 02/19/2024 Progress Notes * SCOTT MCKEONDOB: [birth year] (38 yo M)Acc No.[id number]:02/19/2024 Patient: SCOTT GENTILE :1985 A ge:38 Y S ex:Male Address:[address] [place] [address], [address] * Refills Start hydrOXYzine HCl Tablet, 50 MG, Orally, 30, 1 tablet as needed, Once a day, 30 days, Refills=0 Subjective: * Chief Complaints: * R efill * Medical History: * Surgical History: * Hospitalization/Major Diagno stic Procedure: * Medications: Objective: * Vitals: * Physical Examination: Assessment: * Assessment: 1. 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
--- OUTSIDE RECORDS SUMMARY | 2024-04-11 16:28 | XMS_ITS | Patient Health Record ---
Author Organization [facility] Address [address] [place] [address] Care Team Providers Care Supervisor [employer] Name Role Phone Linnea Condon Unavailable [phone] Ayse Milian Unavailable [phone] Migration, Provider Unavailable Unavailable Allergies Allergen (clinical drug ingredient) Drug/Non Drug Allergy documented on EMR Reaction Allergy Type Onset Date Status Zinacef Unknown Drug Allergy 04/04/2023 Active Reason For Referral No Information Medications Medication SIG (Take, Route, Frequency, Duration) Notes Start Date End Date Status hydrOXYzine HCl 50 MG 1 tablet as needed Orally Once a day for 30 days Active Escitalopram Oxalate 10 MG 1 tablet Oral Once a day for 30 days Active ARIPiprazole 20 MG 1 tablet Oral Once a day for 30 days Active Ventolin HFA 108 (90 Base) MCG/ACT Inhalation 04/04/2023 Active Eletriptan Hydrobromide 40 mg Oral *Reorder from [facility] for eRx and Interaction Alerts* 04/04/2023 Active Tamsulosin HCl 0.4 MG Oral 04/04/2023 Active traZODone HCl 100 MG take 1-2 tablets at bedtime Oral for 30 days As needed for insomnia Active Immunizations Vaccine Route Administration Date Status Comme nts Influenza virus vaccine, quadrivalent (IIV4), split virus, 0.25 mL dosage Unknown 12/04/2017 Administered Novel [id number], preservative free Unknown 12/01/2017 Administered Td (adult), adsorbed Unknown 02/06/2020 Administered Social History Tobacco Use: Social History Observation [...] Do you have a medical power of assistant prosecuting attorney?: Yes Gender Identity and LGBTQ Identity First name used: NANCY Sexual orientation: Straight or heterosexual Social History Substance Use Do you or have you ever smoked tobacco?: Former smoker At what age did you start smoking tobacco?: 16 How much tobacco do you smoke?: None Do you or have you ever used any other forms of tobacco or nicotine?: No Do you or have you ever used e-cigarettes or vape?: Never used electronic cigarettes Do you or have you ever used smokeless tobacco?: Never used smokeless tobacco What was the date of your most recent tobacco screening?: 04/04/2023 Has tobacco cessation counseling been provided?: No What is your level of alcohol consumption?: [...] Do you have a medical power of assistant prosecuting attorney?: Yes Public Health and Travel Have you been to an area known to be high risk for COVID-19?: No Other Education: 12 High blood pressure: No High Cholesterol: No Gender Identity and LGBTQ Identity First name used: NANCY Sexual orientation: Straight or heterosexual Problems Problem Type SNOMED Code ICD Code Onset Dates Problem Status W/U Status Risk Notes Problem [id number] Schizoaffective disorder, depressive type (F25.1) Active confirmed Problem Generalized anxiety disorder (78825511) Generalized anxiety disorder (F41.1) 04/04/19 24 Active confirmed Problem Chronic insomnia (502815491) Chronic insomnia (F51.04) Active confirmed Problem Shwachman syndrome (28570409) 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 Vital Signs Heart Rate 99 /min 11/29/2023 Blood pressure diastolic 83 mm Hg 11/29/2023 Height-cm 165.10 cm 11/29/2023 Weight-kg 69.4 kg 11/29/2023 Height 65.00 in 11/29/2023 Blood pressure systolic 134 mm Hg 11/29/2023 Weight 153 lbs 11/29/2023 BMI 25.46 kg/m2 11/29/2023 Encounters Encounter [facility] Date [facility] [address] [place] [address] 08/01/2023 Ayse Milian Schizoaffective disorder, depressive type F25.1 ; Generalized anxiety disorder F41.1 ; Chronic insomnia F51.04 and Shwachman syndrome D61.02 [place] [id number] [place] [address] 11/29/2023 Ayse Milian Schizoaffective disorder, depressive type F25.1 ; Generalized anxiety disorder F41.1 ; Chronic insomnia F51.04 and Shwachman syndrome D61.02 [place] [address] [place] [address] 07/08/2023 Provider Migration [address] [address] 07/09/2023 Provider Migration [address] [address] 02/19/2024 Linnea Condon Generalized anxiety disorder F41.[address] [address] 03/14/2024 Linnea Condon Schizoaffective disorder, depressive type F25.1 Assessments Encounter Date Diagnosis (ICD Code) Assessment Notes Treatment Notes Treatment Clinical Notes Section Notes 02/19/2024 Generalized anxiety disorder (ICD-10 - F41.1) 03/14/2024 Schizoaffective disorder, depressive type (ICD-10 - F25.1) 08/01/2023 Schizoaffective disorder, depressive type (ICD-10 - F25.1) doing well, no med changes f/u 4 month, earlier if concerns cont escitalopram 10mg daily cont abilify 20mg daily uses cannabis for pain, have encouraged minimize paranoid schizophrenia w/ hx of depression 11/29/2023 Schizoaffective disorder, depressive type (ICD-10 - [...] hydroxyzine 50mg qd prn-takes 1-2x a week 08/01/2023 Generalized anxiety disorder (ICD-10 - F41.1) stable cont hydroxyzine 50mg qd prn-takes 1-2x a week 08/01/2023 Chronic insomnia (ICD-10 - F51.04) cont trazodone 100mg tab, take 1-2 tabs qhs prn insomnia 11/29/2023 Chronic insomnia (ICD-10 - F51.04) cont trazodone 100mg tab, take 1-2 tabs qhs prn insomnia 11/29/2023 Shwachman syndrome (ICD-10 - D61.02) 08/01/2023 Shwachman syndrome (ICD-10 - D61.02) 08/01/2023 Other Plan Of Treatment No Information Insurance Providers Payer Name Payer Address Payer Phone Subscriber Number Group Number Insured Name Patient Relationship to Insured Coverage Start Date Coverage End Date Medicare-I l Medicare [address] [place] [phone] [id number] SCOTT MCKEON Self - patient is the insured Medicaid-I l Medicaid [address] [address] [place] [address] [id number] SCOTT MCKEON Self - patient is the insured Medical (General) History Medical History History ICD Code Problems: Generalized anxiety disorder Paranoid schizophrenia Schizoaffective disorder Shwachman syndrome Smoker , Surgical History Surgery Date(Month/Year) Reconstructive surgery Removal of gallbladder (27903) 3
--- OUTSIDE RECORDS SUMMARY | 2024-04-11 16:28 | XMS_ITS | Clinical Summary ---
Author Organization [facility] Address [address] [place] [address] Care Team Providers Care Dry Folder Cloth Name Role Phone Terese Jacob MD Primary Care Provider [phone]- [phone] Allergies Active Allergy Reactions Criticality Noted Date [...] Seroquel (too sedating), Zyprexa (weight gain), and [place] (weight gain) but all were discontinued due [...] behavior or self harming gestures), by either o vermedicating , taking medications no longer prescribed which he still had access to and being given family members treatments such as his mother s benzodiazepine. 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 #Substance use -Provided [...] on file Legal Sex Male 8:[address] Gender Identity Not on file Sexual Orientation Not on file Obstetrics History Last Filed Vital Signs Vital Sign Reading Time Taken Comments Blood Pressure 110/78 07/23/2018 2:34 PM CDT Pulse 78 07/23/2018 2:34 PM CDT Temperature 36.7 C (98 F) 10/03/2017 2:15 PM CDT Respiratory Rate - - Oxygen Saturation 98% 07/23/2018 2:34 PM CDT Inhaled Oxygen Concentration - - Weight 75.3 kg (166 lb) 07/23/2018 2:34 PM CDT Height 165.1 cm (5' 5 ) 07/23/2018 2:34 PM CDT Body Mass Index 27.62 07/23/2018 2:34 PM CDT Plan of Treatment Not on file Insurance MEDICARE IDPA MEDICARE IDPA Care Teams Dry Folder Cloth Relationship Specialty Start Date End Date Terese Jacob MD PCP - General Family Practice 07/23/18
--- OUTSIDE RECORDS SUMMARY | 2024-04-11 16:28 | XMS_ITS | Referral Summary ---
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 #Substance use [...] on file Legal Sex Male 8:29 PM [employer] Gender Identity Not on file Sexual Orientation [...] of Treatment Not on file Insurance MEDICARE [employer] MEDICARE [facility] Care Teams Dietary Services Director Relationship Specialty Start Date End Date Terese Jacob MD PCP - General Family Practice 07/23/18
[2024-04-11 17:18] LABS: Influenza A QL RT-PCR Negative (Negative); Influenza B QL RT-PCR Negative (Negative); RSV RNA, RT-PCR Negative (Negative); SARS-CoV-2 RNA PCR Negative (Negative)
== END 2024-04-11 16:26 | disposition home or self-care (01) ==
LOC: ANHLAB 16:26
PROVIDERS: PCP Family Medicine; Visit Provider Family Medicine
DX: J06.9 Acute upper respiratory infection, unspecified (principal); Z20.822 Contact with and (suspected) exposure to COVID-19
CPT/HCPCS: 87637